=== PATIENT | female | born 1980 | race Hispanic/Latino ===

== ENCOUNTER 2017-03-23 13:07 | Emergency (ER) | payer MEDICAID ==
[2017-03-23 15:22] LABS: Basophils % (Auto) 0.7 % (0.0-1.8); Eosinophils % (Auto) 4.3 % (0.0-4.3); Hematocrit 36.5 % (30.3-42.9); Hemoglobin 12.6 gm/dl (10.1-14.3); Mean Corpuscular HGB Conc 35 % (30-34); Mean Corpuscular Hemoglobin 31 pg (28-32); Mean Corpuscular Volume 90 fl (79-97); Platelet Count 263 K/mm3 (140-440); Red Blood Count 4.08 M/mm3 (3.65-5.03)
--- NOTE | 2017-03-23 18:40 | Ultrasound Report ---
FINAL REPORT PROCEDURE: US OB TRANSVAGINAL TECHNIQUE: Real-time transabdominal and transvaginal sonography of the uterus, placenta, amniotic fluid, adnexa, and fetus was performed with image documentation. Measurements were obtained to determine age/size. M-mode Doppler was used to document heartbeat. CPT 45931 and 37968 HISTORY: vaginal bleeding with COMPARISON: No prior studies are available for comparison. FINDINGS: ADDITIONAL GESTATION: None. Single live intrauterine is seen with crown-rump length of 2 cm corresponding to 8 weeks 4 days gestational age. Estimated date of delivery is October 29, 2017. heart rate is 177 beats per minute. Internal cervical os is closed. There is likely a 9 x 7 millimeter subchorionic hemorrhage. Yolk sac is seen. Right ovary measures 7.4 x 3.9 x 3.9 cm. Left ovary measures 3.5 x 2.5 x 1.9 cm. Three cysts are seen in the right ovary measuring 3.8, 2.1, and 1.5 cm. Color Doppler flow is seen in the ovaries. No free pelvic fluid is seen. IMPRESSION: 1. Single live intrauterine gestation at approximately 8 weeks 4 days 2. EDC by US October 29, 2017 3. Small subchorionic hemorrhage is seen. 4. Three cysts are seen in the right ovary, measuring up to 3.8 cm in greatest dimension.
--- NOTE | 2017-03-23 18:40 | Ultrasound Report ---
FINAL REPORT PROCEDURE: US OB \T\lt; = 14 WEEKS FETUS TECHNIQUE: Real-time transabdominal and transvaginal sonography of the uterus, placenta, amniotic fluid, adnexa, and fetus was performed with image documentation. Measurements were obtained to determine age/size. M-mode Doppler was used to document heartbeat. CPT 51622 [place] 77470 HISTORY: threatening miscarriage COMPARISON: No prior studies are available for comparison. FINDINGS: ADDITIONAL GESTATION: None. Single live intrauterine is seen with crown-rump length of 2 cm corresponding to 8 weeks 4 days gestational age. Estimated date of delivery is October 29, 2017. heart rate is 177 beats per minute. Internal cervical os is closed. There is likely a 9 x 7 millimeter subchorionic hemorrhage. Yolk sac is seen. Right ovary measures 7.4 x 3.9 x 3.9 cm. Left ovary measures 3.5 x 2.5 x 1.9 cm. Three cysts are seen in the right ovary measuring 3.8, 2.1, and 1.5 cm. Color Doppler flow is seen in the ovaries. No free pelvic fluid is seen. IMPRESSION: 1. Single live intrauterine gestation at approximately 8 weeks 4 days 2. EDC by US October 29, 2017 3. Small subchorionic hemorrhage is seen. 4. Three cysts are seen in the right ovary, measuring up to 3.8 cm in greatest dimension.
--- NOTE | 2017-03-23 19:57 | Emergency Department Report ---
ED HPI - General Chief complaint: Vaginal Bleeding Stated complaint: BLEEDING/8 WEEKS Time Seen by Provider: 03/23/17 19:28 Source: patient Mode of arrival: Ambulatory Limitations: No Limitations - History of Present Illness Initial comments: PT IS 38YO FEMALE G1 WITH 6 WEEKS OF VAGINAL BLEEDING. SHE WAS SEEN ON March AT [facility] FOR VAGINAL BLEEDING AND GIVEN RHOGRAM AT THE TIME. SHE CONTINUES TO BLEEDING THROUGH ONE PAD PER DAY. SHE IS HERE TODAY FOR ABDOMINAL CRAMPING AND VAGINAL BLEEDING. P Complaint: abdominal pain (minimal cramping), vaginal bleeding -: Sudden, week(s) (6) Location: abdomen Radiation: none Severity: mild Severity scale (0 -10): 1 Quality: cramping Consistency: now resolved Improves with: none Worsens with: none Associated symptoms: vaginal bleeding. denies: nausea/vomiting, vaginal discharge Vaginal bleeding: light :: Yes Number of weeks : 8 OB History - Current : other (PCOS) Pre- care: other (mat man) - Related Data : 1 Home Medications Medication Instructions Recorded Confirmed Last Taken Metformin HCl 1 tab PO BID 03/23/17 03/23/17 03/23/17 Allergies Allergy/AdvReac Type Severity Reaction Status Date / Time No Known Allergies Allergy Unverified 03/23/17 13:20 ED Review of Systems ROS: Stated complaint: BLEEDING/8 WEEKS Other details as noted in HPI Constitutional: denies: chills, fever Eyes: denies: eye pain, eye discharge, vision change ENT: denies: ear pain, throat pain Respiratory: denies: cough, shortness of breath, wheezing Cardiovascular: denies: chest pain, palpitations Endocrine: no symptoms reported Gastrointestinal: denies: abdominal pain, nausea, diarrhea Genitourinary: denies: urgency, dysuria, discharge Musculoskeletal: denies: back pain, joint swelling, arthralgia Skin: denies: rash, lesions Neurological: denies: headache, weakness, paresthesias Psychiatric: denies: anxiety, depression Hematological/Lymphatic: denies: easy bleeding, easy bruising ED Past Medical Hx - Past Medical History Previous Medical History?: Yes Hx Arthritis: Yes (right ankle) - Surgical History Past Surgical History?: Yes Additional Surgical History: Right foot surgery - Social History Smoking Status: Former Smoker Substance Use Type: Prescribed - Medications Home Medications: Home Medications Medication Instructions Recorded Confirmed Last Taken Type Metformin HCl 1 tab PO BID 03/23/17 03/23/17 03/23/17 History ED Physical Exam - General Limitations: No Limitations General appearance: alert, in no apparent distress, anxious - Head Head exam: Present: atraumatic, normocephalic - Eye Eye exam: Present: normal appearance. Absent: conjunctival injection, periorbital swelling - Neck Neck exam: Present: normal inspection - Respiratory Respiratory exam: Present: normal lung sounds bilaterally - Cardiovascular Cardiovascular Exam: Present: regular rate, normal rhythm, normal heart sounds. Absent: systolic murmur, diastolic murmur - GI/Abdominal GI/Abdominal exam: Present: soft - External exam: Present: normal external exam Speculum exam: Present: vaginal bleeding, tissue (TISSUE COMING FROM OS - MIXTURE OF BLOOD AND TISSUE) Bi-manual exam: Present: normal bi-manual exam, uterine enlargement (MIDWAY BELOW UMBILICUS). Absent: cervical motion tendernes, adnexal tenderness - Extremities Exam Extremities exam: Present: normal inspection - Neurological Exam Neurological exam: Present: alert, oriented X3 - Psychiatric Psychiatric exam: Present: anxious - Skin Skin exam: Present: warm, intact, normal color ED Course Vital Signs 03/23/17 13:21 Temperature 98.1 F Pulse Rate 84 Respiratory 20 Rate Blood Pressure 142/81 O2 Sat by Pulse 99 Oximetry - Reevaluation(s) Reevaluation #1: 03/23/17 22:00 MINIMAL VAGINAL BLEEDING WHILE HERE ED Medical Decision Making - Lab Data Result diagrams: 03/23/17 14:55 - Radiology Data Radiology results: report reviewed SIUP,8WEEKS AND 4 DAYS, HR 177 Critical care attestation.: If time is entered above; I have spent that time in minutes in the direct care of this critically ill patient, excluding procedure time. ED Disposition Clinical Impression: Threatened miscarriage in early Disposition: DC-01 TO HOME OR SELFCARE Is pt being admited?: No Does the pt Need Aspirin: No Condition: Stable Additional Instructions: PLEASE KEEP YOUR APPOINTMENT WITH [facility] NEXT SATURDAY. Referrals: SUNITHA BEEBE MD [Primary Care Provider] - 3-5 Days
[2017-03-23 20:38] LABS: Bacteria,Urine 1+ /HPF (Negative); Bilirubin,Urine NEG (Negative); Blood,Urine LG (Negative); Ketones,Urine NEG (Negative); Leukocyte Esterase,Urine MOD (Negative); Mucus,Urine FEW /HPF; Nitrite,Urine NEG (Negative); Protein,Urine <15 mg/dL mg/dL (Negative)
[2017-03-23 22:16] VITALS: BP 119/77
== END 2017-03-23 22:34 | disposition home or self-care (01) ==
LOC: ED 13:07
DX: O20.0 Threatened abortion (principal); M19.90 Unspecified osteoarthritis, unspecified site; Z3A.01 Less than 8 weeks gestation of pregnancy; Z87.891 Personal history of nicotine dependence
CPT/HCPCS: 36415; 76801; 76817; 81001; 84702; 85025; 86850; 86900; 86901; 87086; 87210; 87591; 99284